=== PATIENT | male | born 1945 | race Asian ===

== ENCOUNTER 2019-04-28 08:25 | Outpatient (CLI) | payer BC ==
--- NOTE | 2019-04-28 09:13 | CT ---
CT Abdomen Pelvis W Con: 04/28/2019 12:00 AM CLINICAL INFORMATION: Right lower quadrant abdominal pain that radiates to the groin for months COMPARISON: None. TECHNIQUE: Multiple contiguous axial images were obtained and a CT of the abdomen and pelvis with IV contrast. Oral contrast was administered. Coronal reformats were performed. FINDINGS: Lower Chest: within normal limits. Abdomen: Liver: within normal limits. Bile Ducts: Normal caliber. Gallbladder: No calcified gallstones. Normal caliber wall. Pancreas: within normal limits. Spleen: within normal limits. Adrenals: within normal limits. Kidneys: Numerous cysts in the bilateral kidneys measuring up to 10.0 cm in size. Pelvis: Reproductive Organs: No pelvic masses. Ureters: within normal limits. Bladder: within normal limits. Peritoneum: No ascites or free air, no fluid collection. Bowel: Normal caliber. Mesentery and Retroperitoneum: No enlarged mesenteric or retroperitoneal lymph nodes. Vessels: Normal. Abdominal Wall: within normal limits. Bones: Degenerative changes in the spine. IMPRESSION: 1. No evidence of acute intraabdominal or pelvic abnormality. 2. Bilateral renal cysts
[2019-04-28] MEDS ORDERED: Iopamidol 370 76% 100 ML VIAL ONE (12:10)
== END 2019-04-28 08:26 | disposition home or self-care (01) ==
LOC: BICCT 08:25
PROVIDERS: ATTEND Family Medicine
DX: R10.31 Right lower quadrant pain (principal); G89.29 Other chronic pain; Q61.02 Congenital multiple renal cysts
CPT/HCPCS: 74177; 82565